=== PATIENT | female | born 1975 ===

== ENCOUNTER 2022-04-05 06:26 | Day surgery (SDC) | payer OTHER ==
[~2022-04-05] VITALS: Ht 162.6 cm; Wt 65.3 kg
[~2022-04-05 06:26] MED LIST: ADULT LOW DOSE81 M1 PO; FOLIC A PO; IRON PO; LIPIT PO; OMEGA 3 1,0001 EACH PO
== END 2022-04-05 16:15 | disposition home or self-care (01) ==
LOC: CIR.AMB 06:26
PROVIDERS: ATTEND Obstetrics & Gynecology Obstetrics
DX: N72 Inflammatory disease of cervix uteri (principal); K59.00 Constipation, unspecified; Z86.73 Personal history of transient ischemic attack (TIA), and cerebral infarction without residual deficits; Z79.82 Long term (current) use of aspirin; Z88.2 Allergy status to sulfonamides; Z86.16 Personal history of COVID-19; Z20.822 Contact with and (suspected) exposure to COVID-19

== ENCOUNTER 2022-09-27 11:34 | Inpatient (IN) | payer OTHER ==
[~2022-09-27] VITALS: Ht 162.6 cm; Wt 68.5 kg
== END 2022-10-14 15:00 | disposition home or self-care (01) | DRG 743 ==
LOC: CIR.AMB 11:34 → EDSTATUS 11:35 → SURH 11:35 → EDBD 10-11 13:55 → O/R 10-11 13:55 → OB/GYN 10-11 13:55
PROVIDERS: ADMIT Obstetrics & Gynecology Obstetrics; ATTEND Obstetrics & Gynecology Obstetrics
PROC: 0UT50ZZ Resection of Right Fallopian Tube, Open Approach (ICD-10-PCS; 2022-10-11)
PROC: 0UT00ZZ Resection of Right Ovary, Open Approach (ICD-10-PCS; 2022-10-11)
PROC: 0UT90ZZ Resection of Uterus, Open Approach (ICD-10-PCS; principal; 2022-10-11 13:15)
DX: D25.2 Subserosal leiomyoma of uterus (principal); N80.03 Adenomyosis of the uterus; N84.0 Polyp of corpus uteri; N83.01 Follicular cyst of right ovary; Z20.822 Contact with and (suspected) exposure to COVID-19